=== PATIENT | male | born 1960 | race Caucasian/White ===

== ENCOUNTER 2019-12-11 08:03 | Outpatient (CLI) | payer BC ==
--- NOTE | 2019-12-11 09:09 | CT ---
EXAM: CT ANGIOGRAM OF THE HEAD INDICATION: Aneurysm COMPARISON: None TECHNIQUE: CT angiogram of the head are performed in the axial plane. Three-dimensional reformatted i mages are submitted for interpretation. FINDINGS: CTA OF THE HEAD WITH AND WITHOUT CONTRAST: NONCONTRAST HEAD CT: No parenchymal hemorrhage. No extra-axial hematoma. No midline shift. Basilar cisterns are patent. Brain volume, age-appropriate. Cortical milner-white matter differentiation is preserved. No hydrocephalus. Mucus retention cyst in the right maxillary sinus. Intact calvarium. POSTCONTRAST CT OF BRAIN: Pathologic enhancement: No pathologic enhancement the brain. CTA OF THE BRAIN: Intracranial internal carotid arteries:Symmetric enhancement and luminal diameter. Anterior circulation: Appropriate enhancement and luminal diameter of the A1 segment, M1 segment, pro ximal A2 segments and proximal MCA branches. There is no evidence of vascular occlusion, high-grade stenosis or aneurysm. Intracranial vertebral arteries: Right vertebral artery has a PICA termination. Limited evaluation of the left PICA artery origin. Left vertebral artery is the sole supplying artery to the basilar artery. Posterior circulation: Appropriate enhancement and luminal diameter of the basilar artery. Bilateral P1 segments have appropriate enhancement and luminal diameter. No evidence of a PCOM aneurysm. IMPRESSION: No evidence of an aneurysm, at the level of the [place] of [place]. Transcribed Date/Time: 12/11/2019 9:17 AM
[2019-12-11] MEDS ORDERED: Iopamidol-370 76% 500 ML 1 ML ONE (12:44)
== END 2019-12-11 08:04 | disposition home or self-care (01) ==
LOC: BICCT 08:03
PROVIDERS: ATTEND Neurological Surgery
DX: I72.9 Aneurysm of unspecified site (principal)
CPT/HCPCS: 70496; 82565; Q9967